=== PATIENT | male | born 1960 | race Caucasian/White ===

== ENCOUNTER 2017-11-16 06:50 | Emergency (ER) | payer MEDICARE, MEDICAID ==
--- NOTE | 2017-11-16 07:26 | EDM.PDOC ---
ED HPI GENERAL MEDICAL PROBLEM - General Chief Complaint: Neuro Symptoms/Deficits Stated Complaint: MEDICAL VIA [facility] Time Seen by Provider: 11/16/17 07:24 Source of Information: Reports: Patient, EMS, Other (pt is a resident at [facility]) - History of Present Illness Onset: Today, Sudden Duration: Minutes:, Other (Pt was sitting on the tolet and he passed out. ) Location: Reports: Head Associated Symptoms: Reports: Syncope - Related Data Allergies Allergy/AdvReac Type Severity Reaction Status Date / Time levetiracetam [From Keppra] Allergy Unknown Other Verified 11/16/17 09:03 loracarbef [From Lorabid] Allergy Unknown Other Verified 11/16/17 09:03 Penicillins Allergy Other Verified 11/16/17 07:07 Home Meds: Home Meds Cetirizine HCl [Zyrtec] 10 mg PO BID 11/16/17 [History] Fluticasone Propionate [Flonase Allergy Relief] 2 sprays NASBOTH DAILY 11/16/17 [History] Oxybutynin 5 mg PO BID 11/16/17 [History] Polyethylene Glycol 3350 [Miralax] 2 tsp PO DAILY 11/16/17 [History] Triamterene/Hydrochlorothiazid [Dyazide 37.5-25] 1 cap PO DAILY 11/16/17 [ History] carBAMazepine [TEGretol] 300 mg PO TID 11/16/17 [History] lamoTRIgine [Lamotrigine] 100 mg PO BID 11/16/17 [History] Past Medical History Genitourinary History: Reports: Urinary Incontinence Neurological History: Reports: Seizure Social & Family History - Tobacco Use Smoking Status *Q: Unknown Ever Smoked ED ROS GENERAL - Review of Systems Review Of Systems: See Below Constitutional: Reports: Other (near synope) HEENT: Reports: No Symptoms Respiratory: Reports: No Symptoms Cardiovascular: Reports: No Symptoms Endocrine: Reports: No Symptoms GI/Abdominal: Reports: No Symptoms : Reports: No Symptoms Musculoskeletal: Reports: No Symptoms Neurological: Reports: Other (pt passd out briefly. He was on the tollet) Psychiatric: Reports: Anxiety ED EXAM, NEURO - Physical Exam Exam: See Below Text/Narrative:: pt arrived after having a very brief syncopal episode while he was on the stool. He woke up immediately He did not have any seizure activity Exam Limited By: No Limitations General Appearance: Alert, No Apparent Distress, Anxious, Other (pupils are equal and reactive. ) Ears: Normal TMs Nose: Normal Inspection Throat/Mouth: Normal Inspection Head Exam: Atraumatic Neck: Normal Inspection Respiratory/Chest: No Respiratory Distress Cardiovascular: Regular Rate, Rhythm (Male) Exam: Deferred Neurological: Alert Back Exam: Normal Inspection Extremities: Normal Inspection Psychiatric: Normal Affect Course - Vital Signs Last Recorded V/S: Last Vital Signs Temp 36.4 C 11/16/17 06:53 Pulse 92 11/16/17 06:53 Resp 14 11/16/17 06:53 BP 138/76 11/16/17 06:53 Pulse Ox 93 L 11/16/17 06:53 - Orders/Labs/Meds Orders: Active Orders 24 hr Category Date Time Status EKG Documentation Completion [RC] ASDIRECTED Care 11/16/17 07:14 Active CARBAMAZEPINE(TEGRETOL),S Stat Lab 11/16/17 07:55 Received UA W/MICROSCOPIC [URIN] Urgent Lab 11/16/17 09:00 Ordered Potassium Chloride [KCL 20 MEQ in Water 100 ML] 20 meq Med 11/16/17 09:01 Active Premix Bag 1 bag IV ONETIME Sodium Chloride 0.9% [Normal Saline] 1,000 ml Med 11/16/17 09:00 Active IV ASDIRECTED EKG 12 Lead [EK] Routine Ther 11/16/17 07:14 Ordered Medication Orders Sodium Chloride (Normal Saline) 1,000 mls @ 999 mls/hr IV ASDIRECTED [facility] Last Admin: 11/16/17 09:20 Dose: 999 mls/hr Potassium Chloride 20 meq/ (Premix) 100 mls @ 50 mls/hr IV ONETIME ONE Stop: 11/16/17 11:00 Last Admin: 11/16/17 09:20 Dose: 50 mls/hr Labs: Laboratory Tests 11/16/17 11/16/17 11/16/17 Range/Units 07:08 07:18 07:18 WBC 7.2 (4.5-11.0) K/uL RBC 4.66 (4.30-5.90) M/uL Hgb 13.9 (12.0-15.0) g/dL Hct 40.2 (40.0-54.0) % MCV 86 (80-98) fL MCH 30 (27-31) pg MCHC 35 (32-36) % Plt Count 178 (150-400) K/uL Neut % (Auto) 67 H (36-66) % Lymph % (Auto) 15 L (24-44) % [place] % (Auto) 17 H (2-6) % Eos % (Auto) 1 L (2-4) % Baso % (Auto) 1 (0-1) % Sodium 133 L (140-148) mmol/L Potassium 2.9 L* (3.6-5.2) mmol/L Chloride 96 L (100-108) mmol/L Carbon Dioxide 27 (21-32) mmol/L Anion Gap 12.9 (5.0-14.0) mmol/L BUN 9 (7-18) mg/dL Creatinine 0.5 L (0.8-1.3) mg/dL Est Cr Clr Drug Dosing 158.76 mL/min Estimated GFR (MDRD) > 60 (>60) Glucose 119 H (74-106) mg/dL Calcium 8.3 L (8.5-10.1) mg/dL Total Bilirubin 0.3 (0.2-1.0) mg/dL AST 19 (15-37) U/L ALT 21 (12-78) U/L Alkaline Phosphatase 57 (46-116) U/L Troponin I < 0.017 (0.000-0.056) ng/mL Total Protein 6.7 (6.4-8.2) g/dL Albumin 3.5 (3.4-5.0) g/dL Globulin 3.2 (2.3-3.5) g/dL Albumin/Globulin Ratio 1.1 L (1.2-2.2) Urine Color Urine Appearance Urine pH (4.5-8.0) Ur Specific [place] (1.008-1.030) Urine Protein (NEGATIVE) mg/dL Urine Glucose (UA) (NEGATIVE) mg/dL Urine Ketones (NEGATIVE) mg/dL Urine Occult Blood (NEGATIVE) Urine Nitrite (NEGAITVE) Urine Bilirubin (NEGATIVE) Urine Urobilinogen (NORMAL) mg/dL Ur Leukocyte Esterase (NEGATIVE) Urine RBC (0-5) Urine WBC (0-5) Ur Epithelial Cells Amorphous Sediment Urine Bacteria Urine Mucus 05/08/18 Range/Units 09:00 WBC (4.5-11.0) K/uL RBC (4.30-5.90) M/uL Hgb (12.0-15.0) g/dL Hct (40.0-54.0) % MCV (80-98) fL MCH (27-31) pg MCHC (32-36) % Plt Count (150-400) K/uL Neut % (Auto) (36-66) % Lymph % (Auto) (24-44) % [place] % (Auto) (2-6) % Eos % (Auto) (2-4) % Baso % (Auto) (0-1) % Sodium (140-148) mmol/L Potassium (3.6-5.2) mmol/L Chloride (100-108) mmol/L Carbon Dioxide (21-32) mmol/L Anion Gap (5.0-14.0) mmol/L BUN (7-18) mg/dL Creatinine (0.8-1.3) mg/dL Est Cr Clr Drug Dosing mL/min Estimated GFR (MDRD) (>60) Glucose (74-106) mg/dL Calcium (8.5-10.1) mg/dL Total Bilirubin (0.2-1.0) mg/dL AST (15-37) U/L ALT (12-78) U/L Alkaline Phosphatase (46-116) U/L Troponin I (0.000-0.056) ng/mL Total Protein (6.4-8.2) g/dL Albumin (3.4-5.0) g/dL Globulin (2.3-3.5) g/dL Albumin/Globulin Ratio (1.2-2.2) Urine Color Yellow Urine Appearance Clear Urine pH 7.0 (4.5-8.0) Ur Specific [place] 1.010 (1.008-1.030) Urine Protein Negative (NEGATIVE) mg/dL Urine Glucose (UA) Normal (NEGATIVE) mg/dL Urine Ketones Negative (NEGATIVE) mg/dL Urine Occult Blood Negative (NEGATIVE) Urine Nitrite Negative (NEGAITVE) Urine Bilirubin Negative (NEGATIVE) Urine Urobilinogen Normal (NORMAL) mg/dL Ur Leukocyte Esterase Negative (NEGATIVE) Urine RBC Not seen (0-5) Urine WBC 0-5 (0-5) Ur Epithelial Cells Not seen Amorphous Sediment Rare Urine Bacteria Not seen Urine Mucus Not seen Meds: Medications Generic Name Dose Route Start Last Admin Trade Name Freq PRN Reason Stop Dose Admin Sodium Chloride 1,000 mls @ 999 mls/hr 11/16/17 09:00 11/16/17 09:20 Normal Saline IV 999 mls/hr ASDIRECTED NIDHI Administration Potassium Chloride 20 meq/ 100 mls @ 50 mls/hr 11/16/17 09:01 11/16/17 09:20 Premix IV 11/16/17 11:00 50 mls/hr ONETIME ONE Administration Discontinued Medications Generic Name Dose Route Start Last Admin Trade Name Freq PRN Reason Stop Dose Admin Potassium Chloride 20 meq 11/16/17 09:02 11/16/17 09:20 Klor-Con M20 PO 11/16/17 09:03 20 meq ONETIME ONE Administration - Re-Assessments/Exams Free Text/Narrative Re-Assessment/Exam: 11/16/17 10:55 Pt arrived with a history of syncope. . His episode did occur when he was on the tolilet and it was very brief. 11/16/17 10:57 He was found to have a k of 2.9. and was given 20mg po and 20 mg iv. Departure - Departure Time of Disposition: 10:59 Disposition: Home, Self-Care 01 Condition: Fair Clinical Impression: Vagal reaction, Hypokalemia - Discharge Information Referrals: PCP,None [Primary Care Provider] - Forms: ED Department Discharge Care Plan Goals: encourage fluids, kcl 20meq daily. Will notify of the depakote level. - My Orders Last 24 Hours: My Active Orders 11/16/17 07:14 EKG Documentation Completion [RC] ASDIRECTED EKG 12 Lead [EK] Routine 11/16/17 07:55 CARBAMAZEPINE(TEGRETOL),S Stat 11/16/17 09:00 UA W/MICROSCOPIC [URIN] Urgent Sodium Chloride 0.9% [Normal Saline] 1,000 ml IV ASDIRECTED 11/16/17 09:01 Potassium Chloride [KCL 20 MEQ in Water 100 ML] 20 meq Premix Bag 1 bag IV ONETIME - Assessment/Plan Last 24 Hours: My Active Orders 11/16/17 07:14 EKG Documentation Completion [RC] ASDIRECTED EKG 12 Lead [EK] Routine 11/16/17 07:55 CARBAMAZEPINE(TEGRETOL),S Stat 11/16/17 09:00 UA W/MICROSCOPIC [URIN] Urgent Sodium Chloride 0.9% [Normal Saline] 1,000 ml IV ASDIRECTED 11/16/17 09:01 Potassium Chloride [KCL 20 MEQ in Water 100 ML] 20 meq Premix Bag 1 bag IV ONETIME
[2017-11-16] MEDS ORDERED: Sodium Chloride 0.9% 1,000 ML IV SCH (09:00)
[2017-11-16] MEDS ORDERED: Potassium Chloride 20 MEQ in Premix Bag 1 BAG IV ONE (09:01)
[2017-11-16] MEDS ORDERED: Potassium Chloride 20 MEQ Tab.ER PO ONE (09:02)
== END 2017-11-16 12:23 | disposition home or self-care (01) ==
LOC: JP.ED 06:50
DX: E87.6 Hypokalemia (principal); Z88.0 Allergy status to penicillin; Z88.8 Allergy status to other drugs, medicaments and biological substances; Z79.899 Other long term (current) drug therapy
CPT/HCPCS: 36415; 80053; 80156; 81001; 84484; 85025; 93005; 96360; 96361; 99284; A9270; J3480; J7040